=== PATIENT | female | born 1965 | race Caucasian/White ===

== ENCOUNTER → 2017-03-11 | Outpatient (CLI) | payer OTHER | LOC: FIMAGING 08:18 | DX: Z12.31 Encounter for screening mammogram for malignant neoplasm of breast (principal) | CPT/HCPCS: G0202 ==

== ENCOUNTER → 2018-04-19 | Outpatient (CLI) | payer OTHER | LOC: FIMAGING 16:14 | PROVIDERS: ATTEND Nurse Practitioner Women's Health | DX: Z12.31 Encounter for screening mammogram for malignant neoplasm of breast (principal) ==

== ENCOUNTER 2018-10-06 11:42 | Emergency (ER) | payer OTHER ==
--- NOTE | 2018-10-06 12:00 | EDPHY ---
HPI/HX/ROS/PE/MDM Narrative: CHIEF COMPLAINT: Left calf pain HPI: The patient is a 53 y/o female arriving at the recommendation of her PCP for US of her left calf to rule out DVT. She recently joined a gym and began exercising again. About 12 days ago she developed left calf pain that she attributed to a muscle strain. Pain does not radiate and is not associated with swelling. Over time she became concerned this could be a blood clot due to her use of hormone replacement therapy. She was traveling home from [place] yesterday and went through the [employer] body scanner. She was pulled aside to ask about her left calf due to some flag on the TSA screen over this region of her body. This prompted her to call her PCP yesterday to schedule an appointment today for evaluation for a possible blood clot; however, today the office called her and told her to come into the ED instead for an ultrasound. She has no prior history of blood clots, though her mother has had several strokes. The patient experienced brief chest tightness a few days ago, but otherwise denies chest pain or any other symptoms. REVIEW OF SYSTEMS: A comprehensive 10 system review of systems is otherwise negative aside from elements mentioned in the history of present illness. PMH: Appendectomy, tonsillectomy SOCIAL HISTORY: Employed at [employer]. Lives in [place]. . PHYSICAL EXAM: General:Patient is alert, in no acute distress. ENT:Eyes are normal to inspection. ENT inspection normal. Neck: Normal inspection. Full range of motion. Respiratory:No respiratory distress. Breath sounds normal bilaterally. Cardiovascular: Regular rate and rhythm. Strong peripheral pulses. Normal cap refill. Abdomen:The abdomen is nontender to palpation. There are no peritoneal signs. Back: Normal to inspection. No tenderness to palpation. Skin: Normal color. No rash. Warm and dry. Extremities: Mild left calf tenderness. Normal appearance. Full range of motion. Neuro: Oriented x3. Normal motor function. Normal sensory function. ED Course: Healthy 53 y/o female on hormone replacement therapy who presents with a 12-day history of left calf soreness after she began working out again. She has mild left calf tenderness, but no swelling or increase in leg diameter. No other symptoms. Plan for left leg US to rule out DVT. Left leg US: No DVT. Reassessed patient and discussed findings. Recommended following up with her PCP as needed for unimproved symptoms. Return precautions discussed. She is comfortable with this plan. - Data Points Imaging Results: Imaging Impressions Extremity Venous Study 10/06/18 11:52 Impression: No deep venous thrombosis left leg. Findings and recommendations discussed with Emergency Department physician, Luis Wadsworth MD at 12:27 hour, 10/06/2018. Final report concurs with initial preliminary interpretation. Imaging: Discussed imaging studies w/ inbound call center representative Radiologist General Time Seen by Provider: 10/06/18 11:52 Initial Vital Signs: Initial Vital Signs Temperature (C) 36.6 C 10/06/18 11:47 Heart Rate 81 10/06/18 11:47 Respiratory Rate 16 10/06/18 11:47 Blood Pressure 122/72 H 10/06/18 11:47 O2 Sat (%) 98 10/06/18 11:47 O2 Delivery Mode Room Air Allergies/Adverse Reactions: No Known Allergies Allergy (Unverified 10/06/18 11:47) Home Medications: Medication Instructions Recorded Estrogel 10/06/18 Progesterone 10/06/18 Departure - Departure Disposition: Home, Routine, Self-Care Clinical Impression: Left leg pain Condition: Good Instructions: Leg Pain (ED) Additional Instructions: Follow up with your primary care provider as needed for unimproved symptoms over the next few days. Return to the ED for severe pain, dramatic increase in leg swelling, chest pain , shortness of breath, or other worsening of condition. Referrals: Manny Shelton MD [Medical Doctor] - As per Instructions Report Scribed for: Luis Wadsworth Report Scribed by: Poly Cornelius Date of Report: 10/06/18 Time of Report: 12:41 Physician Review and Approval Statement: Portions of this note were transcribed by an ED scribe. I personally performed the history, physical exam, and medical decision making; and confirm the accuracy of the information in the transcribed note.
[2018-10-06 12:53] VITALS: BP 129/82
== END 2018-10-06 12:54 | disposition home or self-care (01) ==
DX: M79.662 Pain in left lower leg (principal)